=== PATIENT | female | born 2000 | race Caucasian/White ===

== ENCOUNTER 2018-03-25 12:00 | Emergency (ER) | payer OTHER ==
[2018-03-25] MEDS ORDERED: BACITRACIN ZINC OINT 15 GM TOP ONE (13:25)
[2018-03-25] MEDS ORDERED: AMOX/CLAV 875 MG/125 MG TABLET PO STA (13:28)
--- NOTE | 2018-03-25 13:30 | ED Physician Documentation ---
History of Present Illness - Stated complaint Stated Complaint: DOG BITE RT - Chief complaint Chief Complaint: Wound - Additonal information Additional information: hx from pt bit by her healthy immunized dog her tdap is UTD denies preg Review of Systems Skin: reports: Bite / sting Immunocompromised: denies: Immunocompromised PD PAST MEDICAL HISTORY - Past Medical History Past Medical History: No - Past Surgical History Past Surgical History: Yes HEENT: Tonsil/Adenoidectomy - Present Medications Home Medications: Ambulatory Orders Medication Instructions Recorded Confirmed Amox/Clav 875/125 [Augmentin] 1 each PO Q12H #14 tablet 03/25/18 - Allergies Allergies/Adverse Reactions: Allergies Allergy/AdvReac Type Severity Reaction Status Date / Time No Known Drug Allergies Allergy Verified 03/25/18 12:20 - Social History Does the pt smoke?: No Smoking Status: Never smoker Does the pt drink ETOH?: No Does the pt have substance abuse?: No - Immunizations Immunizations are current?: Yes PD ED PE NORMAL - Vitals Vital signs reviewed: Yes - Derm Derm: Other (puncture wound to ant ulnar R FA abrasion opposite, MSV intact) Results - Vitals Vitals: Vital Signs - 24 hr 03/25/18 12:18 Temperature 35.8 C L Heart Rate 84 Respiratory 14 Rate Blood Pressure 137/97 H O2 Saturation 99 Oxygen O2 Source Room air Departure - Departure Disposition: 01 Home, Self Care Clinical Impression: Dog bite Qualifiers: Encounter type: initial encounter Qualified Code(s): W54.0XXA - Bitten by dog, initial encounter Condition: Good Instructions: ED Bite Animal General Prescriptions: Amox/Clav 875/125 [Augmentin] 1 each PO Q12H #14 tablet
[2018-03-25 13:36] VITALS: BP 132/90
== END 2018-03-25 13:35 | disposition home or self-care (01) ==
LOC: ED 12:00
DX: S51.851A Open bite of right forearm, initial encounter (principal); W54.0XXA Bitten by dog, initial encounter
CPT/HCPCS: 99282; 99283; A9270

== ENCOUNTER 2018-05-29 19:03 | Emergency (ER) | payer OTHER ==
[2018-05-29] MEDS ORDERED: IPRATROPIUM/ALBUTEROL 3 ML NEB INH STA (20:19)
[2018-05-29] MEDS ORDERED: DEXAMETHASONE 10 MG/ML VIAL PO STA (20:19)
[2018-05-29] MEDS ORDERED: CHERRY SYRUP 10 ML UDC PO ONE (20:25)
[2018-05-29 21:23] VITALS: BP 139/73
--- NOTE | 2018-05-29 21:42 | ED Physician Documentation ---
PD HPI HEENT - Stated complaint Stated Complaint: NAUSEA/SORE THROAT/COUGH/PX - Chief complaint Chief Complaint: Resp - History obtained from History obtained from: Patient - History of Present Illness Timing - onset: How many days ago (4) Timing - duration: Days (4) Timing - details: Gradual onset Pain level max: 3 Pain level now: 3 Severity Comments: mild Location: Sinuses, Nose, Throat Improves: Medication Worsens: Swalllowing Associated symptoms: Congestion, Rhinorrhea Review of Systems Ten Systems: 10 systems reviewed and negative Constitutional: reports: Reviewed and negative Eyes: reports: Reviewed and negative Ears: reports: Reviewed and negative Nose: reports: Reviewed and negative Throat: reports: Reviewed and negative Cardiac: reports: Reviewed and negative Respiratory: reports: Reviewed and negative GI: reports: Reviewed and negative : reports: Reviewed and negative Skin: reports: Reviewed and negative Musculoskeletal: reports: Reviewed and negative Neurologic: reports: Reviewed and negative Psychiatric: reports: Reviewed and negative Endocrine: reports: Reviewed and negative Immunocompromised: reports: Reviewed and negative PD PAST MEDICAL HISTORY - Past Medical History Past Medical History: No Cardiovascular: None Respiratory: None Neuro: None Endocrine/Autoimmune: None GI: None 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 HEENT: None Psych: None Musculoskeletal: None Derm: None Other Past Medical History: Reviewed and not pertinent - Past Surgical History Past Surgical History: Yes HEENT: Tonsil/Adenoidectomy Other past surgical history: Reviewed and not pertinent - Present Medications Home Medications: Ambulatory Orders Medication Instructions Recorded Confirmed Albuterol Sulf [Ventolin Hfa 1 - 2 puffs INH Q4HR PRN #1 inhaler 05/29/18 Inhaler] - Allergies Allergies/Adverse Reactions: Allergies Allergy/AdvReac Type Severity Reaction Status Date / Time No Known Drug Allergies Allergy Verified 05/29/18 19:10 - Living Situation Living Situation: reports: With spouse/s.o. Living Arrangement: reports: At home - Social History Does the pt smoke?: No Smoking Status: Never smoker Does the pt drink ETOH?: No Does the pt have substance abuse?: No - Family History Family history: reports: Other (Reviewed and not pertinent) - Immunizations Immunizations are current?: Yes - POLST Patient has POLST: No PD ED PE NORMAL - Vitals Vital signs reviewed: Yes - General General: Alert and oriented X 3, No acute distress - HEENT HEENT: PERRL - Neck Neck: Supple, no meningeal sign - Cardiac Cardiac: RRR, No murmur - Respiratory Respiratory: Other (End expiratory wheezes) - Abdomen Abdomen: Normal bowel sounds, Soft, Non tender, Non distended - Derm Derm: Warm and dry - Extremities Extremities: No deformity - Neuro Neuro: Alert and oriented X 3 - Psych Psych: Normal mood, Normal affect Results - Vitals Vitals: Vital Signs - 24 hr 05/29/18 05/29/18 05/29/18 19:08 20:57 21:22 Temperature 36.9 C 36.4 C L Heart Rate 109 H 93 120 H Respiratory 20 16 22 Rate Blood Pressure 139/88 H 139/73 H O2 Saturation 97 97 05/29/18 21:45 Temperature Heart Rate 100 Respiratory 22 Rate Blood Pressure O2 Saturation 99 Oxygen O2 Source Room air PD MEDICAL DECISION MAKING - ED course Complexity details: re-evaluated patient, considered differential, d/w patient, d/w family ED course: 17-year-old female with cough, congestion, mild wheezes on exam. Wheezing improved with DuoNeb. Patient discharged with albuterol inhaler and symptomatic treatment. Consistent with upper respiratory infection. Departure - Departure Disposition: Home, Self Care Clinical Impression: Upper respiratory infection Qualifiers: URI type: unspecified viral URI Qualified Code(s): J06.9 - Acute upper respiratory infection, unspecified Condition: Good Instructions: ED Asthma Acute Ch, ED Viral Syndrome Ch Follow-Up: Your, PCP [Other] Prescriptions: Albuterol Sulf [Ventolin Hfa Inhaler] 1 - 2 puffs INH Q4HR PRN #1 inhaler PRN Reason: Shortness Of Air/Wheezing Comments: Continue using Afrin, Sudafed, Tylenol, ibuprofen with addition of albuterol for cough and congestion. Follow-up with PCP within 24-48 hours. Return with worsening symptoms. Discharge Date/Time: 05/29/18 21:46
== END 2018-05-29 21:46 | disposition home or self-care (01) ==
LOC: ED 19:03
DX: J06.9 Acute upper respiratory infection, unspecified (principal)
CPT/HCPCS: 94640; 99283; A9270

== ENCOUNTER 2018-07-04 07:46 | Emergency (ER) | payer OTHER ==
[2018-07-04 07:55] VITALS: BP 117/87
[2018-07-04 08:02] LABS: BILIRUBIN,URINE NEGATIVE (NEGATIVE); GLUCOSE, URINE (UA) NEGATIVE (NEGATIVE); KETONES,URINE (UA) NEGATIVE (NEGATIVE); LEUKOCYTE ESTERASE, URINE MODERATE (NEGATIVE); NITRITE,URINE NEGATIVE (NEGATIVE); OCCULT BLOOD,URINE LARGE (NEGATIVE); PROTEIN,URINE 30 mg/dL (NEGATIVE); UROBILINOGEN,URINE 0.2 (NORMAL) E.U./dL (NORMAL)
[2018-07-04] MEDS ORDERED: PHENAZOPYRIDINE 100 MG TABLET PO STA (08:07)
[2018-07-04] MEDS ORDERED: NITROFURANTOIN MACRO 100 MG CAPSULE PO STA (08:07)
--- NOTE | 2018-07-04 08:11 | ED Physician Documentation ---
History of Present Illness - Stated complaint Stated Complaint: BACK/ABD PX BLOOD IN URINE - Chief complaint Chief Complaint: General - History obtained from History obtained from: Patient - History of Present Illness Timing: Yesterday Pain level max: 5 Pain level now: 4 Improved by: nothing Worsened by: urination - Additonal information Additional information: 18-year-old female presents to the emergency department stating that she has dysuria, urinary frequency, blood in the urine and low back pain since yesterday. No change in sexual partners. Denies any possibility of . Denies any STD exposure. No vaginal discharge. No bleeding. 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 : None HEENT: None Psych: None Musculoskeletal: None Derm: None - Past Surgical History Past Surgical History: Yes HEENT: Tonsil/Adenoidectomy - Present Medications Home Medications: Ambulatory Orders Medication Instructions Recorded Confirmed Nitrofurantoin Monohyd/M-Cryst 100 mg PO BID #10 capsule 07/04/18 [Macrobid 100 mg Capsule] Phenazopyridine HCl [Pyridium] 200 mg PO TID PRN #6 tablet 07/04/18 - Allergies Allergies/Adverse Reactions: Allergies Allergy/AdvReac Type Severity Reaction Status Date / Time No Known Drug Allergies Allergy Verified 07/04/18 07:54 - Social History Does the pt smoke?: No Smoking Status: Never smoker Does the pt drink ETOH?: No Does the pt have substance abuse?: No - Immunizations Immunizations are current?: Yes - POLST Patient has POLST: No PD ED PE NORMAL - Vitals Vital signs reviewed: Yes - General General: Alert and oriented X 3, No acute distress, Well developed/nourished - HEENT HEENT: Moist mucous membranes - Neck Neck: Supple, no meningeal sign - Cardiac Cardiac: RRR, Strong equal pulses - Respiratory Respiratory: No respiratory distress, Clear bilaterally - Abdomen Abdomen: Soft, Non tender, Non distended - Back Back: No CVA TTP, No spinal TTP - Derm Derm: Warm and dry - Neuro Neuro: Alert and oriented X 3 - Psych Psych: Normal mood, Normal affect Results - Vitals Vitals: Vital Signs - 24 hr 07/04/18 07:53 Temperature 36.8 C Heart Rate 95 Respiratory 16 Rate Blood Pressure 117/87 H O2 Saturation 99 Oxygen O2 Source Room air PD MEDICAL DECISION MAKING - ED course Complexity details: reviewed results, considered differential, d/w patient ED course: 18-year-old female presents the emergency department with a UTI. Will place on Macrobid and Pyridium. Will have her follow-up with her doctor for further care. No evidence of sepsis. No evidence of pyelonephritis. Patient counseled regarding signs and symptoms for which I believe and urgent re-evaluation would be necessary. Patient with good understanding of and agreement to plan and is comfortable going home at this time This document was made in part using voice recognition software. While efforts are made to proofread this document, sound alike and grammatical errors may occur. Departure - Departure Disposition: 01 Home, Self Care Clinical Impression: UTI (urinary tract infection) Qualifiers: Urinary tract infection type: acute cystitis Hematuria presence: with hematuria Qualified Code(s): N30.01 - Acute cystitis with hematuria Condition: Good Instructions: ED UTI Cystitis Female Follow-Up: your,doctor in 1 week [Other] Prescriptions: Nitrofurantoin Monohyd/M-Cryst [Macrobid 100 mg Capsule] 100 mg PO BID #10 capsule Phenazopyridine HCl [Pyridium] 200 mg PO TID PRN #6 tablet PRN Reason: dysuria Comments: Take all antibiotics until gone. Return if you worsen. Antibiotics can interfere with control pills, if you are on control pills please use a backup method of control while on the antibiotics.
[2018-07-04 08:12] LABS: BACTERIA,URINE Few /HPF (None Seen); CLARITY,URINE CLOUDY (CLEAR); HCG UR QUAL NEGATIVE; SQUAMOUS EPITHELIAL CELL,UR MOD Squamous (<= Few)
== END 2018-07-04 08:23 | disposition home or self-care (01) ==
LOC: ED 07:46
DX: N30.01 Acute cystitis with hematuria (principal)
CPT/HCPCS: 81001; 81003; 81025; 87086; 99283

== ENCOUNTER 2019-01-21 15:35 | Emergency (ER) | payer OTHER ==
--- NOTE | 2019-01-21 16:57 | XRAY Report ---
Reason: L wrist pain Procedure Date: 01/21/2019 Accession Number: [id number] / [id number] Procedure: XR - Wrist 4 View LT CPT Code: FULL RESULT: EXAM: LEFT WRIST RADIOGRAPHY EXAM DATE: 01/21/2019 04:40 PM. CLINICAL HISTORY: L wrist pain. COMPARISON: None. TECHNIQUE: 4 views. FINDINGS: Bones: Normal. No fractures or bone lesions. Joints: Normal. No subluxations. Soft Tissues: Normal. No soft tissue swelling. IMPRESSION: Normal wrist radiography. RADIA
[2019-01-21] MEDS ORDERED: CHERRY SYRUP 10 ML UDC PO ONE (17:10)
[2019-01-21] MEDS ORDERED: DEXAMETHASONE 10 MG/ML VIAL PO STA (17:10)
--- NOTE | 2019-01-21 17:13 | ED Physician Documentation ---
PD HPI UPPER EXT INJURY - Stated complaint Stated Complaint: L WRIST PAIN - Chief complaint Chief Complaint: Trauma Ext - History obtained from History obtained from: Patient - History of Present Illness Location: Left, Wrist, Hand Type of injury: Other (over use) Where injury occurred: Work Timing - onset: How many months ago (1) Timing - duration: Months (1) Timing - details: Gradual onset, Still present, Waxing and waning Improved by: Rest, Ice, Immobilization Worsened by: Moving, Palpating Associated symptoms: No: Weakness, Numbness, Tingling, Swelling Contributing factors: No: Anticoagulated Similar symptoms before: Diagnosis (tendonitis) Recently seen: Clinic - Additonal information Additional information: 18-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 The more she uses it the more it hurts and the pain is become intolerable. She has been diagnosed with tendinitis she is been placed on Tylenol and ibuprofen and she is not having adequate pain relief. She continues to have a problem with the pain and is this is interfering with her ability to complete her work. Review of Systems Constitutional: denies: Fever Respiratory: denies: Cough GI: denies: Vomiting PD PAST MEDICAL HISTORY - Past Medical History Cardiovascular: None Respiratory: None Neuro: None Endocrine/Autoimmune: None GI: None LOCATION MAN: None : None HEENT: None Psych: None Musculoskeletal: None Derm: None - Past Surgical History Past Surgical History: Yes HEENT: Tonsil/Adenoidectomy - Present Medications Home Medications: Ambulatory Orders Medication Instructions Recorded Confirmed Naproxen 250 mg PO BID 01/21/19 01/21/19 predniSONE [Prednisone] 40 mg PO DAILY #10 tablet 01/21/19 - Allergies Allergies/Adverse Reactions: Allergies Allergy/AdvReac Type Severity Reaction Status Date / Time No Known Drug Allergies Allergy Verified 07/04/18 07:54 - Social History Does the pt smoke?: No Smoking Status: Never smoker Does the pt drink ETOH?: No Does the pt have substance abuse?: No - Immunizations Immunizations are current?: Yes - POLST Patient has POLST: No PD ED PE NORMAL - Vitals Vital signs reviewed: Yes (Hypertensive) - General General: Alert and oriented X 3, No acute distress, Well developed/nourished - HEENT HEENT: Atraumatic, PERRL, EOMI - Respiratory Respiratory: No respiratory distress - Derm Derm: Normal color, Warm and dry, No rash - Extremities Extremities: No deformity, No edema, Other (There is some tenderness over the extensor tendons of the left hand especially over 2 3 and 4 and the tenderness extends into the distal forearm. This pain with movement of the fingers is improved by compression of the dorsum of the wrist and dorsum of the hand. She has no significant pain in the forearm proximally and the distal neurovascular components are intact. She is able to flex and extend at the wrist and does not have crepitance or restriction.) Results - Vitals Vitals: Vital Signs - 24 hr 01/21/19 16:08 Temperature 37 C Heart Rate 86 Respiratory 16 Rate Blood Pressure 147/91 H O2 Saturation 99 Oxygen O2 Source Room air - Rads (name of study) wrist L Radiology: Prelim report reviewed (Impression: Normal wrist radiography.), EMP read indepedently, See rad report Procedures - Splint (location) L wrist Splint applied by: Tech Type of splint: Fiberglass, Volar cock up Other: Patient tolerated well, No complications, Neurovascular intact, Good alignment PD MEDICAL DECISION MAKING - ED course Complexity details: reviewed results, re-evaluated patient, considered differential, d/w patient ED course: 18-year-old female with tendinitis of the left hand and wrist has not had adequate pain relief with the use of ibuprofen and Tylenol and she continues to work. She will need restriction in the work done by her left hand and she is placed into a volar splint. She is administered dexamethasone 10 mg orally here in the emergency department and will place her on a 5-day course of prednisone. We will give the patient a work note for 2 weeks limited duty of left hand confined to a splint. Departure - Departure Disposition: 01 Home, Self Care Clinical Impression: Tendinitis of left wrist, Tendinitis of left hand Condition: Stable Instructions: ED Epicondylitis Lateral Elbow Follow-Up: ANDREY Marquez [Provider Group] Prescriptions: predniSONE [Prednisone] 40 mg PO DAILY #10 tablet Forms: Activity restrictions
[2019-01-21 17:36] VITALS: BP 138/84
== END 2019-01-21 17:39 | disposition home or self-care (01) ==
LOC: ED 15:35
DX: M70.842 Other soft tissue disorders related to use, overuse and pressure, left hand (principal); M70.832 Other soft tissue disorders related to use, overuse and pressure, left forearm; Y93.89 Activity, other specified; Y92.139 Unspecified place military base as the place of occurrence of the external cause; Y99.1 Military activity
CPT/HCPCS: 29125; 73110; 99282; 99283; A9270

== ENCOUNTER 2019-05-01 13:37 | Outpatient (CLI) | payer OTHER ==
--- NOTE | 2019-05-02 13:36 | MRI Report ---
Reason: PAIN IN LT WRIST Procedure Date: 05/01/2019 Accession Number: [id number] / [id number] Procedure: MRI - Wrist LT W/O CPT Code: Final Report FULL RESULT: EXAM: LEFT WRIST MRI WITHOUT CONTRAST EXAM DATE: 05/01/2019 04:00 PM. CLINICAL HISTORY: Pain in left wrist. COMPARISON: None. TECHNIQUE: Multiplanar, multisequence T1-weighted and fluid-sensitive sequences of the wrist without contrast. Other: Some motion artifact.. FINDINGS: Bones: No fractures or subluxations. No marrow edema. No bone lesions. Cartilage: The articular cartilage is unremarkable. The triangular fibrocartilage complex is unremarkable. Ligaments: The scapholunate and lunotriquetral ligaments are intact. The visualized other intrinsic, extrinsic and collateral ligaments are unremarkable. Tendons: The extensor compartment I through and flexor tendons are unremarkable. Musculature: No edema or fatty atrophy. Other: Guyon canal is unremarkable. Carpal tunnel flexor retinaculum is slightly bowed anteriorly. There is mild flattening of the median nerve within the carpal tunnel. There is a small ganglion cyst at the dorsal aspect of the carpal articulations between the capitate and lunate. Series 901 image 14. No joint effusions. The subcutaneous tissues are unremarkable. IMPRESSION: 1. Small ganglion cyst is seen at the dorsal aspect of the lunate-capitate articulation, of doubtful consequence. This measures 0.6 x 0.1 cm transversely and extends for a cephalocaudal distance of 0.9 cm. 2. Carpal tunnel flexor retinaculum is slightly anteriorly bowed and the median nerve is slightly flattened. 3. TFCC, intercarpal ligaments, bones and articular surfaces appear unremarkable. RADIA
== END 2019-05-01 13:38 | disposition home or self-care (01) ==
LOC: DI 13:37
PROVIDERS: ATTEND General Practice
DX: M25.532 Pain in left wrist (principal); M67.432 Ganglion, left wrist

== ENCOUNTER 2020-05-19 16:43 | Emergency (ER) | payer OTHER ==
[2020-05-19 17:13] LABS: BASOPHILS % (AUTO) 0.2 %; EOSINOPHILS # (AUTO) 0.1 10^3/uL (0.0-0.7); EOSINOPHILS % (AUTO) 0.9 %; HCT - HEMATOCRIT 40.2 % (37.0-47.0); HGB - HEMOGLOBIN 13.6 g/dL (12.0-16.0); LYMPHOCYTES # (AUTO) 3.5 10^3/uL (1.5-3.5); LYMPHOCYTES % (AUTO) 36.1 %; MEAN CORPUSCULAR HEMOGLOBIN 29.9 pg (27.0-31.0); MEAN CORPUSCULAR HGB CONC 33.8 g/dL (32.0-36.0); MEAN CORPUSCULAR VOLUME 88.4 fL (81.0-99.0); MEAN PLATELET VOLUME 9.5 fL (7.9-10.8); MONOCYTES # (AUTO) 0.8 10^3/uL (0.0-1.0); MONOCYTES % (AUTO) 8.4 %; NEUTROPHILS # (AUTO) 5.3 10^3/uL (1.5-6.6); NEUTROPHILS % (AUTO) 54.2 %; PLT - PLATELET COUNT 260 10^3/uL (130-450); RED BLOOD COUNT 4.55 10^6/uL (4.20-5.40); RED CELL DISTRIBUTION WIDTH 11.9 % (12.0-15.0); WHITE BLOOD COUNT 9.7 x10^3/uL (4.8-10.8)
[2020-05-19 17:29] LABS: ALBUMIN 4.3 g/dL (3.2-5.5); ALBUMIN/GLOBULIN RATIO 1.3 (1.0-2.2); BILIRUBIN,TOTAL 0.5 mg/dL (0.2-1.0); CALCIUM 8.9 mg/dL (8.5-10.3); CREATININE 0.5 mg/dL (0.4-1.0); POTASSIUM 3.8 mmol/L (3.5-5.0); TOTAL PROTEIN 7.6 g/dL (6.7-8.2)
[2020-05-19 18:03] LABS: BILIRUBIN,URINE NEGATIVE (NEGATIVE); GLUCOSE, URINE (UA) NEGATIVE (NEGATIVE); KETONES,URINE (UA) NEGATIVE (NEGATIVE); LEUKOCYTE ESTERASE, URINE NEGATIVE (NEGATIVE); NITRITE,URINE NEGATIVE (NEGATIVE); OCCULT BLOOD,URINE TRACE-INTA (NEGATIVE); PROTEIN,URINE NEGATIVE (NEGATIVE); UROBILINOGEN,URINE 0.2 (NORMAL) E.U./dL (NORMAL)
[2020-05-19 18:04] LABS: CLARITY,URINE CLEAR (CLEAR)
[2020-05-19 18:05] LABS: HCG UR QUAL NEGATIVE
[2020-05-19] MEDS ORDERED: SODIUM CHLORIDE 0.9% 1,000 ML IV STA (19:24)
[2020-05-19] MEDS ORDERED: HYDROmorphone 1 MG/ML CARPUJECT IVP STA (19:24)
--- NOTE | 2020-05-19 19:24 | ED Physician Documentation ---
History of Present Illness - Stated complaint Stated Complaint: ABD PX - Chief complaint Chief Complaint: Abd Pain - History obtained from History obtained from: Patient - Additonal information Additional information: 19-year-old female presents to the emergency department for evaluation of lower abdominal pain. Patient reports that the pain is right sided sharp nonradiating. Occurred after urination but denies dysuria. Denies hematuria. Denies possibility of and is on her menstrual cycle. No fevers or vomiting. Some nausea. No history of similar. No pertinent past surgical history Review of Systems Constitutional: denies: Fever, Chills Eyes: reports: Reviewed and negative Ears: reports: Reviewed and negative Nose: reports: Reviewed and negative Throat: reports: Reviewed and negative Cardiac: reports: Reviewed and negative Respiratory: reports: Reviewed and negative GI: reports: Abdominal Pain, Nausea. 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 : None HEENT: None Psych: None Musculoskeletal: None Derm: None - Past Surgical History Past Surgical History: Yes HEENT: Tonsil/Adenoidectomy - Present Medications Home Medications: Ambulatory Orders Medication Instructions Recorded Confirmed No Known Home Medications 05/19/20 05/19/20 - Allergies Allergies/Adverse Reactions: Allergies Allergy/AdvReac Type Severity Reaction Status Date / Time No Known Drug Allergies Allergy Verified 05/19/20 16:58 - Social History Does the pt smoke?: No Smoking Status: Never smoker Does the pt drink ETOH?: No Does the pt have substance abuse?: No - Immunizations Immunizations are current?: Yes - POLST Patient has POLST: No PD ED PE EXPANDED - General General: Alert, No acute distress, Well developed/nourished - Cardiac Cardiac: Regular Rate, Regular Rhythm, Radial strong equal, Pedal strong equal, Cap refill < 2 sec - Respiratory Respiratory: Clear to ausultation keshawn. No: Distress, Labored - Abdomen Abdomen: Normal Bowel sounds, Tender to palpation (Tender to palpation in the left lower quadrant and right lower quadrant without guarding or rebound.) - Derm Derm: Normal color, Warm and dry. No: Rash - Extremities Extremities: Normal. No: Deformity, Tenderness - Neuro Neuro: Alert and Oriented X 3, CNII-XII intact. No: Confused, Disoriented - GCS Eye Opening: Spontaneous Motor: Obeys Commands Verbal: Oriented Total: 15 Results - Vitals Vitals: Vital Signs - 24 hr 05/19/20 05/19/20 05/19/20 16:59 18:01 18:41 Temperature 36.5 C 37 C Heart Rate 84 76 72 Respiratory 18 16 16 Rate Blood Pressure 127/76 119/90 H 113/77 O2 Saturation 98 99 100 05/19/20 20:18 Temperature Heart Rate 82 Respiratory 18 Rate Blood Pressure 128/72 O2 Saturation 97 Oxygen O2 Source Room air - Labs Labs: Laboratory Tests 05/19/20 05/19/20 05/19/20 17:09 17:09 17:30 WBC 9.7 RBC 4.55 Hgb 13.6 Hct 40.2 MCV 88.4 MCH 29.9 MCHC 33.8 RDW 11.9 L Plt Count 260 MPV 9.5 Neut # (Auto) 5.3 Lymph # (Auto) 3.5 Pratt # (Auto) 0.8 Eos # (Auto) 0.1 Baso # (Auto) 0.0 Absolute Nucleated RBC 0.00 Nucleated RBC % 0.0 Sodium 140 Potassium 3.8 Chloride 104 Carbon Dioxide 27 Anion Gap 9.0 BUN 11 Creatinine 0.5 Estimated GFR (MDRD) 156 Glucose 88 Calcium 8.9 Total Bilirubin 0.5 AST 19 ALT 27 Alkaline Phosphatase 69 Total Protein 7.6 Albumin 4.3 Globulin 3.3 Albumin/Globulin Ratio 1.3 Lipase 22 Urine Color YELLOW Urine Clarity CLEAR Urine pH 7.0 Ur Specific [place] 1.015 Urine Protein NEGATIVE Urine Glucose (UA) NEGATIVE Urine Ketones NEGATIVE Urine Occult Blood TRACE-INTA Urine Nitrite NEGATIVE Urine Bilirubin NEGATIVE Urine Urobilinogen 0.2 (NORMAL) Ur Leukocyte Esterase NEGATIVE Ur Microscopic Review NOT INDICATED Urine Culture Comments NOT INDICATED Urine HCG, Qual NEGATIVE - Rads (name of study) CT abd Radiology: Final report received (Epiploic appendagitis of sigmoid colon) PD MEDICAL DECISION MAKING - ED course Complexity details: reviewed results, re-evaluated patient, considered differential, d/w patient ED course: 19-year-old female presents to the emergency department for evaluation of acute onset lower pelvic pain. No history of similar. She initially reported right- sided pain but it was elicited on the left side. Her labs showed no leukocytosis. No transaminase elevation. Urine shows no signs of infection. Differential considered included ovarian torsion versus acute appendicitis. CT of the abdomen was completed. It does show epiliploic appendagitis of the sigmoid colon. Findings discussed with patient. Will be dc home. recommend ibuprofen for analgesia. Emergent return precautions discussed Departure - Departure Disposition: Home, Self Care Clinical Impression: Epiploic appendagitis Condition: Stable Record reviewed to determine appropriate education?: Yes Comments: I hope that you are feeling better soon. Your labs today are all essentially normal. The CT scan showed a condition called "epiploic appendagitis" of your sigmoid colon. These are essentially fat filled sacs that can become inflamed. They rarely cause serious injury and do not require surgery. I recommended that you take ibuprofen at home for pain. I recommend lots of fluids and rest. If at any point you have fevers worsening pain uncontrolled vomiting please return immediately to the ER
[2020-05-19] MEDS ORDERED: IOVERSOL 320 100 ML VIAL IVP ONE ×2 (19:28→20:09)
--- NOTE | 2020-05-19 20:59 | CT Report ---
PROCEDURE: Abdomen/Pelvis W INDICATIONS: acute lower pelvic pain CONTRAST: IV CONTRAST: Optiray 320 ml: 100 PO CONTRAST: *NO PO CONTRAST TECHNIQUE: After the administration of 100 mL contrast, 5 mm thick sections acquired from the diaphragms to the symphysis. 5 mm thick coronal and sagittal reformats were acquired. For radiation dose reduction, t he following was used: automated exposure control, adjustment of mA and/or kV according to patient s ize. COMPARISON: None. FINDINGS: Image quality: Excellent. ABDOMEN: Lung bases: Lung bases are clear. Heart size is normal. Solid organs: Liver and spleen are normal in size and enhancement. Gallbladder is normal Biliary s ystem is non dilated. Pancreas enhances normally. No adrenal nodules. Kidneys demonstrate normal s ize and enhancement, without hydronephrosis. Peritoneum and bowel: No free air or free fluid. There is fat density with surrounding halo and infla mmation on the antimesenteric border of the sigmoid colon consistent with epiploic appendigitis. This is best seen on coronal images. Nodes and vessels: No retroperitoneal or mesenteric adenopathy by size criteria. Aorta and inferior vena cava are normal in size. Miscellaneous: No ventral hernias. PELVIS: Genitourinary: Bladder wall thickness is normal. Miscellaneous: No inguinal hernias or adenopathy. Bones: No suspicious bony lesions. No vertebral body compression fractures. IMPRESSION: Epiploic appendigitis of the sigmoid colon. Reviewed by: Lalito Madrid on 05/19/2020 8:58 PM PST Approved by: Lalito Madrid on 05/19/2020 8:58 PM PST Station ID: [id number]
[2020-05-19 21:27] VITALS: BP 118/79
--- OUTSIDE RECORDS SUMMARY | 2020-05-27 00:26 | EXTERNAL MEDICAL SUMMARY RPT | Continuity of Care Document ---
:2000 Demographics Phone Unavailable Preferred Language Unknown Marital Status Unknown Catholic Affiliation Unknown Race Unknown Ethnic Group Unknown Author Organization [place] Address [address] [phone] Phone Care Team Providers Name Role Phone TYLER Unavailable Unavailable Provider Unavailable Unavailable Problems date description facility 2018-03-25 12:00 OPEN BITE OF RIGHT FOREARM, [facility] INITIAL ENCOUNTER 2018-03-25 12:00 BITTEN BY DOG, INITIAL ENCOUNTER [facility] 2018-05-29 19:03 ACUTE PHARYNGITIS, UNSPECIFIED [facility] 2018-05-29 19:03 ACUTE UPPER RESPIRATORY INFECTION, [facility] UNSPECIFIED 2018-07-04 07:46 DORSALGIA, UNSPECIFIED [facility] ed[facility] [place] 2018-07-04 07:46 ACUTE CYSTITIS WITH HEMATURIA [facility] 2019-01-21 15:35 PAIN IN LEFT WRIST [facility] 2019-01-21 15:35 OT SOFT TISSUE DISORDERS RELATED [facility] TO USE/PRESSURE, L [facility] 2019-01-21 15:35 OT SOFT TISSUE DISORDERS RELATED [facility] TO USE/PRESSURE, LEFT HAND 2019-01-21 15:[address] [facility] 2019-01-21 15:35 ACTIVITY, OTHER SPECIFIED [facility] 2019-01-21 15:[address] [facility] 2019-05-01 13:37 PAIN IN LEFT WRIST [facility] [place] 2019-05-01 13:37 GANGLION, LEFT WRIST [facility] [place] 2020-05-19 16:43 OTHER SPECIFIED DISEASES OF [facility] INTESTINE Allergies date description [facility] ROSUVA[facility]IN [facility] IODINATED DIAGNOSTIC AGENTS [facility] [place] NO KNOWN ENVIRONMENTAL ALLERGIES [facility] BIGUANIDES [facility] NO KNOWN ALLERGIES [facility] NITROUS OXIDE [facility] CARISOPRODOL [facility] HYDROCHLOROTHIAZIDE [facility] AMOX[facility] [place] DILTIAZEM HCL [facility] CODEINE [facility] [place] [facility]DROCODONE [facility] NO KNOWN ENVIRONMENTAL ALLERGIES [facility] STATINS [facility] PENICILLINS [facility] NO KNOWN ALLERGIES [facility] No Known Drug Allergies [facility] Results Social History date description facility [id number]
== END 2020-05-19 21:52 | disposition home or self-care (01) ==
LOC: ED 16:43
DX: K63.89 Other specified diseases of intestine (principal)
CPT/HCPCS: 36415; 74177; 80053; 81003; 81025; 83690; 85025; 96361; 96374; 99283; 99284; J1170; Q9967; 81001; 87086